=== PATIENT | male | born 1975 | race Caucasian/White ===

== ENCOUNTER 2017-01-17 23:01 | Emergency (ER) | payer BC ==
[~2017-01-17] VITALS: Ht 177.8 cm; Wt 108.9 kg
[2017-01-17 23:55] LABS: BASOPHIL % 0.3 % (0-2); CALCIUM 8.5 mg/dL (8.5-10.1); CARBON DIOXIDE 28.6 mmol/L (21-32); CHLORIDE SERUM 103 mmol/L (98-107); CREATININE SERUM 1.1 mg/dL (0.7-1.3); GFR1 > 60 mL/min; GLUCOSE SERUM 100 mg/dL (74-106); PLATELET COUNT 229 x10^3mcL (130-400); RED CELL DISTRIBUTION WIDTH 14.3 % (11.5-14.5); SODIUM SERUM 138 mmol/L (136-145)
[2017-01-18 00:02] LABS: ALBUMIN 3.4 g/dL (3.4-5.0); ALKALINE PHOSPHATASE 69 U/L (46-116); ALT/SGPT 21 U/L (16-63); AST/SGOT 6 U/L (15-37); BILIRUBIN TOTAL 0.2 mg/dL (0.20-1.00); LIPASE 141 IU/L (73-393); TOTAL PROTEIN, SERUM 7.6 g/dL (6.4-8.2)
[2017-01-18 00:04] LABS: CHOLESTEROL 279 mg/dL (<200); CHOLESTEROL/HDL RATIO 8.2; HDL CHOLESTEROL 34 mg/dL (40-60); TRIGLYCERIDES 219 mg/dL (<150)
[2017-01-18 00:05] LABS: T3 TOTAL 1.3 ng/mL
[2017-01-18 00:24] LABS: FREE T4 0.93 ng/dL (0.76-1.46); FREE THYROXINE INDEX 1.7 ug/dL (1.4-4.5); T4(THYROXINE) 7.3 ug/dL (4.7-13.3)
[2017-01-18 00:52] VITALS: BP 130/86
== END 2017-01-18 00:52 | disposition home or self-care (01) ==
LOC: ED 23:01
PROVIDERS: Specialist
DX: R07.9 Chest pain, unspecified (principal)
CPT/HCPCS: 36415; 83880; 84439; Q0092

== ENCOUNTER 2017-03-24 18:02 | Emergency (ER) | payer BC ==
[~2017-03-24] VITALS: Ht 177.8 cm; Wt 107.5 kg
[2017-03-24 21:10] VITALS: BP 148/83
== END 2017-03-24 21:10 | disposition home or self-care (01) ==
LOC: ED 18:02
DX: S86.911A Strain of unspecified muscle(s) and tendon(s) at lower leg level, right leg, initial encounter (principal); R03.0 Elevated blood-pressure reading, without diagnosis of hypertension; X58.XXXA Exposure to other specified factors, initial encounter; Y93.51 Activity, roller skating (inline) and skateboarding; Y92.89 Other specified places as the place of occurrence of the external cause; Y99.8 Other external cause status